=== PATIENT | female | born 1985 | race Caucasian/White ===

== ENCOUNTER 2017-07-01 19:59 | Emergency (ER) | payer OTHER ==
[~2017-07-01] VITALS: Ht 180.3 cm; Wt 100.2 kg
[~2017-07-01 19:59] MED LIST: ALBU90OI INH; AMOX500 PO; AMPI500 PO; AZIT250 PO; CEPH500 PO; Cyclobenzaprine5 MG PO; DICY20 PO; DOXY100 PO; HYDACE5 PO; IBUP400; IBUP800 PO; IRON150C PO; LOPE2C PO; MULVITMINE PO; Motrin600 MG PO; NAPR375 PO; NAPR500 PO; NIFE60ER PO; NITR100CA PO; Norco 5-325 Ta1 EACH PO; ORACONB PO; OXYACE5T PO; PRENZ; PROM25 PO; Prenatabs Rx T1 EACH PO; RXOXYACE PO; TRAM50 PO
== END 2017-07-01 21:25 | disposition left against medical advice (07) ==
LOC: ER 19:59
DX: Z53.21 Procedure and treatment not carried out due to patient leaving prior to being seen by health care provider (principal)

== ENCOUNTER 2018-10-09 05:39 | Inpatient (IN) | payer OTHER ==
[~2018-10-09] VITALS: Ht 180.3 cm; Wt 114.0 kg
[2018-10-09 06:13] LABS: BASOPHILS ABSOLUTE AUTO 0.02 K/mm3 (0.00-0.23); BASOPHILS PERCENT AUTO 0 % (0-2); EOSINOPHILS ABSOLUTE AUTO 0.05 K/mm3 (0.00-0.68); EOSINOPHILS PERCENT AUTO 1 % (0-6); Hematocrit 33.8 % (33.0-51.0); Hemoglobin 10.8 g/dL (11.5-16.0); IMMATURE GRAN ABSOLUTE AUTO 0.03 K/mm3 (0.00-0.10); IMMATURE GRAN PERCENT AUTO 0 % (0-1); LYMPHOCYTES ABSOLUTE AUTO 2.15 K/mm3 (0.84-5.20); LYMPHOCYTES PERCENT AUTO 24 % (21-46); MONOCYTES ABSOLUTE AUTO 0.75 K/mm3 (0.16-1.47); MONOCYTES PERCENT AUTO 8 % (4-13); Mean Corpuscular HGB 25.3 pg (26.0-34.0); Mean Corpuscular Volume 79 fL (80-100); Mean Platelet Volume 11.9 fL (9.1-12.4); NEUTROPHILS PERCENT AUTO 67 % (41-73); Platelet Count 157 K/mm3 (150-400); RDW Coefficient Variation 14.9 % (11.7-14.2); RDW Standard Deviation 42.4 fL (35.1-46.3); Red Blood Cell Count 4.27 M/mm3 (3.80-5.20)
[2018-10-09] MEDS ORDERED: IRON150C PO (06:15)
[2018-10-10 06:45] LABS: BASOPHILS ABSOLUTE AUTO 0.01 K/mm3 (0.00-0.23); BASOPHILS PERCENT AUTO 0 % (0-2); EOSINOPHILS ABSOLUTE AUTO 0.05 K/mm3 (0.00-0.68); EOSINOPHILS PERCENT AUTO 1 % (0-6); Hematocrit 33.4 % (33.0-51.0); Hemoglobin 10.5 g/dL (11.5-16.0); IMMATURE GRAN ABSOLUTE AUTO 0.03 K/mm3 (0.00-0.10); IMMATURE GRAN PERCENT AUTO 0 % (0-1); LYMPHOCYTES ABSOLUTE AUTO 2.05 K/mm3 (0.84-5.20); LYMPHOCYTES PERCENT AUTO 23 % (21-46); MONOCYTES ABSOLUTE AUTO 0.68 K/mm3 (0.16-1.47); MONOCYTES PERCENT AUTO 8 % (4-13); Mean Corpuscular HGB 25.2 pg (26.0-34.0); Mean Corpuscular HGB Conc 31.4 g/dL (31.5-36.5); Mean Corpuscular Volume 80 fL (80-100); Mean Platelet Volume 11.7 fL (9.1-12.4); NEUTROPHILS ABSOLUTE AUTO 6.04 K/mm3 (1.96-9.15); NEUTROPHILS PERCENT AUTO 68 % (41-73); Platelet Count 130 K/mm3 (150-400); RDW Standard Deviation 42.9 fL (35.1-46.3); Red Blood Cell Count 4.17 M/mm3 (3.80-5.20); White Blood Cell Count 8.86 K/mm3 (4.00-11.30)
[2018-10-10] MEDS ORDERED: IBUP800 PO (12:25)
--- NOTE | 2018-10-10 16:28 | NUR ---
CONSULT. MOM IS EXPERIENCED WITH BF, HAS QUESTIONS ABOUT HANDLING HER TWINS. SHE FEELS BOTH BABY'S ARE DOING WELL WITH LATCHING, SELF WAKING NOW. SHE HAS A MY BREAST PILLOW AT HOME TO HELP WITH POSITIONING. INSTRUCT IN DIFFERENT POSITIONS TO TRY, HOW TO HELP SUPPORT BABY WITH BLANKET ROLLS. INSTRUCT IN CHANGES TO EXPECT DURING THE FIRST WEEK WITH BABY'S AND WITH FEEDINGS AND REFERRED TO BF BROCHURE AND PAGE 18 OF BF BOOKLET. BOTH PARENTS LOVING WITH BABY'S, SNUGGLING THEM BETWEEN FEEDINGS. QUESTIONS ANSWERED.
--- NOTE | 2018-10-10 18:58 | NUR ---
PT DISCHARGED TO HOME. DISCHARGE INSTRUCTIONS GIVEN. NO QUESTIONS OR CONERNS AT THIS TIME. IBUPROFEN PRESCRIPTION HANDED TO PT. PT HAS DENIED THE NEED FOR PAIN MEDICATION AT THIS TIME AND REPORTS VERY MINIMAL PAIN. PT ADVISED TO CALL [facility] IF SHE HAS ANY QUESTIONS WHEN SHE GETS HOME.
== END 2018-10-10 19:00 | disposition home or self-care (01) | DRG 807 ==
LOC: BC 05:39 → OBS 05:39 → BC 05:45
PROVIDERS: ADMIT Nurse Practitioner Obstetrics & Gynecology
PROC: 10E0XZZ Delivery of Products of Conception, External Approach (ICD-10-PCS; principal; 2018-10-09)
PROC: 10907ZC Drainage of Amniotic Fluid, Therapeutic from Products of Conception, Via Natural or Artificial Opening (ICD-10-PCS; 2018-10-09)
PROC: 4A0 Measurement and Monitoring, Physiological Systems, Measurement (ICD-10-PCS; 2018-10-09)
PROC: 3E0S3BZ Introduction of Anesthetic Agent into Epidural Space, Percutaneous Approach (ICD-10-PCS; 2018-10-09)
PROC: 00HU33Z Insertion of Infusion Device into Spinal Canal, Percutaneous Approach (ICD-10-PCS; 2018-10-09)
DX: O30.043 Twin pregnancy, dichorionic/diamniotic, third trimester (principal); Z37.2 Twins, both liveborn; Z3A.38 38 weeks gestation of pregnancy
CPT/HCPCS: 36415; 51702; 85025; 88307; J1885; J2001; J2210; J2590; J7120